=== PATIENT | female | born 1940 | race American Indian/Alaskan Native ===

== ENCOUNTER 2017-10-23 10:52 | Outpatient (CLI) | payer MEDICARE ==
--- NOTE | 2017-10-23 12:04 | Ultrasound Report ---
Renal ultrasound: Benign left renal neoplasm. The right renal length is 9.7 cm. There is an 11 mm circumscribed echolucency in the upper pole. The kidney is not otherwise remarkable. The left kidney has a length of approximately 10.6 cm. There is a predominantly exophytic circumscribed echolucency extending from the upper pole measuring 8.7 cm in size and a second echolucency within the parenchyma measuring 3.3 cm. The remainder of the kidney is grossly normal. Imaging of the urinary bladder is grossly normal. Impression: Dominant left renal cyst with bilateral small renal cysts.
== END 2017-10-23 10:53 | disposition home or self-care (01) ==
LOC: US 10:52
PROVIDERS: ATTEND Urology
DX: D30.02 Benign neoplasm of left kidney (principal)
CPT/HCPCS: 76770

== ENCOUNTER 2020-12-17 07:42 | Outpatient (CLI) | payer MEDICARE ==
--- NOTE | 2020-12-17 08:53 | Cat Scan Report ---
CT ABDOMEN AND PELVIS WITHOUT CONTRAST INDICATION / CLINICAL INFORMATION: CYST OF KIDNEY. TECHNIQUE: Axial CT images were obtained through the abdomen and pelvis without IV contrast. Sagittal and mckenzie l reformatted images. All CT scans at this location are performed using CT dose reduction for ALARA b y means of automated exposure control. COMPARISON: Renal ultrasound 10/23/2017 FINDINGS: LOWER CHEST: No significant abnormality. LIVER: No significant abnormality. GALLBLADDER: No significant abnormality. BILE DUCTS: No significant abnormality. PANCREAS: No significant abnormality. SPLEEN: No significant abnormality. ADRENALS: No significant abnormality. RIGHT KIDNEY and URETER: A 1 cm simple cyst is identified at mid pole the right kidney which appears unchanged since 10/23/2017. The right kidney and collecting system are otherwise unremarkable. LEFT KIDNEY and URETER: There are 2 cysts in the inferior right kidney. A simple 3.7 cm cyst is ident ified which appears unchanged. An approximate 10.2 cm cyst with minimal thin wall calcifications medi ally is identified which is not significantly changed. No evidence for mass, nephrolithiasis or hydro nephrosis. STOMACH and SMALL BOWEL: No significant abnormality. COLON: Few scattered diverticula are identified. No inflammation or obstruction. APPENDIX: No significant abnormality. PERITONEUM: No free fluid. No free air. No fluid collection. LYMPH NODES: No significant adenopathy. AORTA and ARTERIES: No significant abnormality. IVC and VEINS: No significant abnormality. URINARY BLADDER: No significant abnormality. REPRODUCTIVE ORGANS: No significant abnormality. ADDITIONAL FINDINGS: None. SKELETAL SYSTEM: Moderate to severe multilevel thoracolumbar spondylosis. IMPRESSION: 1 cm right renal cyst, Bosniak 1. 3.7 cm left renal cyst, Bosniak 1. 10.2 cm left renal cyst, Bosniak 2. These findings appear grossly unchanged since the renal ultrasound dated 10/23/2017. Mild diverticulosis of the colon. 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 Signer Name: Mitchell Thomas Jr, MD Signed: 12/17/2020 8:49 AM Workstation Name: [id number]
== END 2020-12-17 07:43 | disposition home or self-care (01) ==
LOC: CT 07:42
PROVIDERS: ATTEND Urology
DX: N28.1 Cyst of kidney, acquired (principal); K57.30 Diverticulosis of large intestine without perforation or abscess without bleeding; M47.815 Spondylosis without myelopathy or radiculopathy, thoracolumbar region
CPT/HCPCS: 74176